=== PATIENT | male | born 1975 | race Caucasian/White ===

== ENCOUNTER 2017-03-10 18:28 | Emergency (ER) | payer OTHER, SELFPAY | END 2017-03-10 20:25 | LOC: ED 18:28 | DX: J20.8 Acute bronchitis due to other specified organisms (principal); J00 Acute nasopharyngitis [common cold] | CPT/HCPCS: 71020 ==

== ENCOUNTER 2019-07-28 06:27 | Emergency (ER) | payer OTHER ==
[~2019-07-28] VITALS: Ht 190.5 cm; Wt 95.0 kg
--- NOTE | 2019-07-28 06:35 | NUR ---
BIB [facility] FROM WORK AT [employer] WITH C/O RUQ ABDOMINAL PAIN THAT STARTED YESTERDAY, DENIES N/V/D OR INJURY. RECEIVED 100MCG FENTANYL AND 4 MG ZOFRAN [employer] OPERATIONS AND MAINTENANCE. MONITORS APPLIED, SIDERAILS UP X2, CALL LIGHT WITHIN REACH
[2019-07-28] MEDS ORDERED: OMEP2.5S2 PO (06:52)
--- NOTE | 2019-07-28 06:52 | NUR ---
REPORT GIVEN TO SILVIO SMITH
--- NOTE | 2019-07-28 06:52 | NUR ---
RECEIVED REPORT FROM [facility]. PT UPRIGHT ON GURNEY AWAKE & COMFORTABLE, RESPONDS APPROP TO STAFF, NAD, COMFORT MEASURES PROVIDED, CALL LIGHT WITHIN REACH.
[2019-07-28 06:58] LABS: BASOPHILS # (AUTO) 0.04 x10^3/uL (0-0.1); BASOPHILS % (AUTO) 0 % (0-1); EOSINOPHILS # (AUTO) 0.19 x10^3/uL (0-0.4); EOSINOPHILS % (AUTO) 2 % (1-7); LYMPHOCYTES # (AUTO) 1.32 x10^3/uL (1-3.4); LYMPHOCYTES % (AUTO) 14 % (22-44); MD NO; MEAN CORPUSCULAR HEMOGLOBIN 29.3 pg (27.5-34.5); MEAN CORPUSCULAR HGB CONC 33.7 g/dL (33.2-36.2); MEAN CORPUSCULAR VOLUME 86.9 fL (81-97); MEAN PLATELET VOLUME 9.3 fL (7.4-10.4); MONOCYTES # (AUTO) 0.46 x10^3/uL (0.2-0.8); MONOCYTES % (AUTO) 5 % (2-9); NEUTROPHILS # (AUTO) 7.56 x10^3/uL (1.8-6.8); NEUTROPHILS % (AUTO) 79 % (42-75); PLATELET COUNT 220 x10^3/uL (130-400); RED BLOOD COUNT 5.53 x10^6/uL (4.38-5.82); RED CELL DISTRIBUTION WIDTH 13.3 % (9.4-14.8)
[2019-07-28] MEDS ORDERED: ONDANSETRON 2MG/ML, 2ML IVPush ONE (07:00)
[2019-07-28] MEDS ORDERED: MORPHINE SULFATE 4 MG/ML, 1ML IVPush PRN (07:00)
[2019-07-28] MEDS ORDERED: SODIUM CHLORIDE FLUSH 10ML SYR IVF ONE (07:00)
[2019-07-28] MEDS ORDERED: ONDANSETRON 2MG/ML, 2ML ONE (07:01)
[2019-07-28] MEDS ORDERED: MORPHINE SULFATE 4 MG/ML, 1ML ONE (07:01)
[2019-07-28 07:05] LABS: ALBUMIN 3.7 g/dL (3.4-5.0); ANION GAP 7 mmol/L (5-15); CALCIUM 8.8 mg/dL (8.5-10.1); CHLORIDE 110 mmol/L (98-107); CREATININE 1.11 mg/dL (0.7-1.3)
[2019-07-28 07:07] LABS: ALANINE AMINOTRANSFERASE 23 U/L (12-78); ALKALINE PHOSPHATASE 78 U/L (45-117); BILIRUBIN,TOTAL 0.3 mg/dL (0.2-1.0); TOTAL PROTEIN 7.6 g/dL (6.4-8.2)
[2019-07-28 07:21] LABS: CULTURE INDICATED? NO; MICROSCOPIC NOT IND
--- NOTE | 2019-07-28 08:05 | NUR ---
PT REMAINS UPRIGHT ON GURNEY WITH EYES CLOSED BUT COMFORTABLE, RESPONDS APPROP TO STAFF, NAD, COMFORT MEASURES PROVIDED, CALL LIGHT WITHIN REACH.
[2019-07-28 09:10] VITALS: BP 132/70
--- NOTE | 2019-07-28 09:11 | NUR ---
Patient given discharge instructions and they have confirmed that they understand the instructions. Patient ambulatory with steady gait.
== END 2019-07-28 09:16 | disposition home or self-care (01) ==
LOC: ED 08:03
DX: R10.11 Right upper quadrant pain (principal); K21.9 Gastro-esophageal reflux disease without esophagitis
CPT/HCPCS: 36415; 76700; 80053; 81003; 83690; 85025; 96374; 96375; 99284; J2270; J2405

== ENCOUNTER 2021-03-29 18:30 | Emergency (ER) | payer BC ==
[~2021-03-29] VITALS: Ht 190.5 cm; Wt 117.3 kg
[~2021-03-29 18:30] MED LIST: OMEP2.5S2 PO
[2021-03-29] MEDS ORDERED: ALBUTEROL SULFATE 2.5 MG/3 ML ONE (20:25)
[2021-03-29] MEDS ORDERED: ALBUTEROL SULFATE 2.5 MG/3 ML NPPB ONE (20:30)
[2021-03-29 20:41] VITALS: BP 132/84
--- NOTE | 2021-03-29 20:59 | NUR ---
LUNG SOUNDS DIMINSHED IN ALL LUNG MARISCAL, WHEEZING HAS IMPROVED, MINOR WHEEZING IN BILAT LOWER BASES. PT REPORTS "I FEEL BETTER, JUST TIRED AND THIRSTY".
== END 2021-03-29 21:43 | disposition home or self-care (01) ==
LOC: ED 19:20
DX: J45.31 Mild persistent asthma with (acute) exacerbation (principal); R00.0 Tachycardia, unspecified; K21.9 Gastro-esophageal reflux disease without esophagitis
CPT/HCPCS: 71045; 94640; 99283; J7512; J7613